=== PATIENT | male | born 1940 | race Two or more races ===

== ENCOUNTER → 2025-02-21 | Outpatient (CLI) | payer MEDICARE, OTHER ==
--- NOTE | 2025-02-21 16:41 | DVHSR ---
APPROVED REPORT EXAM: Two-dimensional and M-mode echocardiogram with Doppler and color Doppler. DIMENSIONS LVDd4.8 (3.8-5.7cm)LA (2D)4.8 (1.9-4.0cm)Aortic Root3.4 (2.0-3.7cm) LVDs3.4 (2.5-4.0cm)LA (MM) (1.9-4.0cm)Aortic Cusp Exc1.4 (1.5-2.0cm) EF (%) 56.6 (55-70%)Rt. Atrium2.9 (1.9-4.0cm)Asc. Aorta cm IVSd1.1 (0.7-1.1cm)RV (D)2.5 (1.8-2.4cm) PWd1.1 (0.7-1.1cm) Mitral Valve MitralMitral Stenosis E wave0.88m/sMV Mean GR.2mmHg A wave0.93m/sMV Peak GR.31mmHg E/A ratio0.92D MVAcm2 DECEL [id number] 1/2 [id number] IVRTmsDop MVA3.40cm2 Aortic Valve Aortic ValveAortic Stenosis V11.00m/Damon Mean GR.3mmHg V21.43m/Damon Peak GR.8mmHg LVOT Diameter2.1 (1.8-2.4cm)Doppler AVA2.42cm2 Pulmonic Valve V20.95m/s Tricuspid Valve [id number] LEFT VENTRICLE The Ejection Fraction is >55%. RIGHT VENTRICLE The right ventricle is normal size. ATRIA The left atrial size is normal. The right atrium size is normal. MITRAL VALVE Mitral annular calcification is mild. Mitral regurgitation is mild. PULMONIC VALVE The pulmonic valve is not well visualized. TRICUSPID VALVE The tricuspid valve is grossly normal. AORTIC VALVE The aortic valve is mildlysclerotic. There is trace aortic regurgitation. GREAT VESSELS The aortic root is normal size. PERICARDIAL EFFUSION There is no pericardial effusion. Conclusion LAE LVH BORDERLINE EF >55% DIASTOLIC DYSFUNCTION MILD MAC
== END | disposition home or self-care (01) ==
LOC: Rad HDHVI 13:50
PROVIDERS: ATTEND Internal Medicine Cardiovascular Disease
DX: I08.0 Rheumatic disorders of both mitral and aortic valves (principal); I50.43 Acute on chronic combined systolic (congestive) and diastolic (congestive) heart failure
CPT/HCPCS: 93306

== ENCOUNTER → 2025-03-16 | Outpatient (CLI) | payer MEDICARE, OTHER ==
[~2025-03-16] MED LIST: ASPI1TAB20 PO; ATOR-47 PO; BUPR-133 PO; CARB-112 PO; CARB-86 PO; CHOL100079 PO; CLOP75TA28 PO; CYAN1KIT3 INJ; DAPA5TAB2 PO; DONE5TAB80 PO; FEBU40TA PO; FLUT1AER17 IN; FLUT50SP; FURO1TAB33 PO; LEVO100T8 PO; LINA1CAP2 PO; LOSA-535 PO; MISC4CAP PO; OMEP20TA PO; POLYPOW85 PO; QUET1TAB11 PO; RASA1TAB4 PO; ROSU10TA16 PO; SERT-377 PO; SODI10PA PO; VERI2.5T PO; ZOFR4T PO; [UNRECOGNIZED DRUG - CODE] IJ
[2025-03-16 09:30] VITALS: BP 112/59; PULSE 71; RESP 16; O2SAT 97
[2025-03-16 10:20] VITALS: BP 114/54; PULSE 71; RESP 16; O2SAT 97
--- NOTE | 2025-03-16 12:21 | DVH ---
EXAM: XY CHEST TWO VIEWS ROUTINE CLINICAL HISTORY: pain COMPARISON: None TECHNIQUE: Frontal and lateral view of the chest was obtained FINDINGS: Lines and Tubes: None Lungs: No focal consolidation. Pleura: No effusion. No pneumothorax. Cardiomediastinal contours: Unremarkable Bones: No acute osseous abnormality. IMPRESSION: No acute cardiopulmonary disease.
--- NOTE | 2025-03-17 12:55 | DVHHP ---
ADMIT DATE: 03/16/2025 HISTORY OF PRESENT ILLNESS: The patient, who is 84 years old, who has seen me once before when he presented with signs and symptom complex of progressive symptoms of shortness of breath. The patient has been having multiple admissions or seen in the Emergency Room on multiple times when he presented with flash pulmonary edema. The patient was given Lasix and then was subsequently discharged home. It appears as though the patient has all the stigma of coronary artery disease. His ejection fraction is slightly diminished on echocardiography. It shows an EF around 40%-45%. PERTINENT MEDICAL HISTORY: Significant for: * Organic heart disease. A. Hypertension. B. History of hyperlipidemia. C. History of CVA, currently on dual antiplatelet therapy. * Anxiety and depression. * Parkinson's disorder. * Benign prostatic hypertrophy. * Early manifestation organic brain syndrome * History of acid reflux. * Irritable bowel syndrome. * Looks like the patient has hyperkalemia. This is most likely secondary to combination of renal insufficiency as well as from the use of losartan. This could contribute to the patient's hyperkalemia. REVIEW OF SYSTEMS: The patient denies any syncopal episode. No history of melena or hematochezia. No hematemesis or hemoptysis. At this time, no history of bleeding CVA. Denies any history of any sepsis, fever, chills at this time. Denies any history of COPD. CURRENT MEDICATIONS: Include: * Aspirin. * Wellbutrin. * Sinemet. * Plavix. * Aricept. * Synthroid. * Linzess. * Lokelma. * Omeprazole. * Zofran. He has hyperlipidemia for which he is unfortunately on 2 combination statins, both Crestor and Lipitor. I will discontinue the Lipitor. I will keep him on Crestor 10 mg once a day. He also has inhaler therapy as well for some tracheobronchitis. PHYSICAL EXAMINATION: VITAL SIGNS: Blood pressure is 131/66, pulse of 80, O2 saturation of 97% on room air. HEENT: Pupils are reactive. Funduscopic exam shows no AV nicking, no exudates, no papilledema. Extraocular muscles are intact. Sclerae anicteric. NECK: No JVD appreciated. Carotid pulses are 2+ symmetrical. No cervical adenopathy. No supraclavicular adenopathy. PULMONARY: Clear to auscultation. Tympanic to percussion. No wheezes. No egophony. CARDIOVASCULAR: Regular rate. There is a soft 2/6 systolic murmur along the left sternal border. ABDOMEN: Soft, nontender. Normal bowel sounds. SKIN: Unremarkable. EXTREMITIES: 1+ pulses bilaterally. NEUROLOGIC: The patient is intact, although memory is somewhat diminished. ASSESSMENT AND PLAN: The patient thus with signs and symptom complex of a flash pulmonary edema consistent with ischemic cardiomyopathy, diminished left ventricular ejection fraction, renal chronic kidney disease with a creatinine of 1.99 and hyperkalemia either type 4 RTA or combination of renal insufficiency as well as use of losartan. At this time, I will start him on Verquvo 2.5 mg b.i.d. and we will titrate and discontinue the patient's Lipitor and discontinue the patient's losartan and monitor the patient's potassium at this point. Verquvo would be beneficial not only for his ischemic cardiomyopathy, also be helpful for his . Therefore, at this time, the patient should undergo coronary angiography. Further recommendations after the angiogram. Terry Win MD SA/LORI/JONATHON TID: [id number] RECEIPT: [id number]
== END | disposition home or self-care (01) ==
LOC: Rad HDHVI 09:20
PROVIDERS: ATTEND Internal Medicine Cardiovascular Disease
DX: Z01.818 Encounter for other preprocedural examination (principal); I50.9 Heart failure, unspecified; N18.30 Chronic kidney disease, stage 3 unspecified; E78.5 Hyperlipidemia, unspecified; Z79.82 Long term (current) use of aspirin; Z79.899 Other long term (current) drug therapy
CPT/HCPCS: 71046; 93005; G0463

== ENCOUNTER 2025-03-17 07:40 | Inpatient (IN) | payer MEDICARE, OTHER ==
[2025-03-16 13:04] LABS: Basophils # (auto) 0 10 ^3/uL (0-0.2); Basophils % (auto) 0.5 % (0.0-2.0); Eosinophils # (auto) 0.2 10 ^3/uL (0-0.8); Eosinophils % (auto) 2.5 % (0.0-7.0); Hematocrit 35.2 % (41.0-53.0); Hemoglobin 12.3 g/dL (13.5-17.5); Lymphocytes # (auto) 1.1 10 ^3/uL (0.4-5.4); Lymphocytes % (auto) 16.5 % (10.0-50.0); Mean Corpuscular Hemoglobin 33.7 pg (28.0-32.0); Mean Corpuscular Hgb Conc. 35.1 g/dL (32.0-36.0); Mean Corpuscular Volume 96.1 fL (80.0-100.0); Monocytes # (auto) 0.5 10 ^3/uL (0-1.3); Neutrophils # (auto) 4.9 10 ^3/uL (1.6-8.6); Neutrophils % (auto) 73.5 % (37.0-80.0); Nucleated Red Blood Cells % 0.1 %; Platelet Count (auto) 189 10^3/uL (140-450); Red Blood Cells 3.66 10^6/uL (4.5-5.90); Red Cell Distribution Width 14.2 % (11.8-14.3); White Blood Cell 6.6 10^3/uL (4.4-10.8)
[2025-03-16 13:20] LABS: INR 0.98 (0.9-1.15); Partial Thromboplastin Time 27.6 SEC (24.5-34.5); Prothrombin Time 10.4 sec (9.3-11.8)
[2025-03-16 13:50] LABS: Albumin 4.4 g/dL (3.2-4.8); Alkaline Phosphatase 105 U/L (46-116); Anion Gap 2 (5-15); Aspartate Aminotransferase 25 U/L (13-40); BUN/Creatinine Ratio 16.1 (10.0-20.0); Calcium 9.9 mg/dL (8.7-10.4); Carbon Dioxide 25 mmol/L (20-31); Glucose 103 mg/dL (74-106); Magnesium 1.9 mg/dL (1.6-2.6); Potassium 4.5 mmol/L (3.5-5.1); Sodium 140 mmol/L (136-145); Total Protein 6.4 g/dL (5.7-8.2)
[2025-03-16 13:51] LABS: Alanine Aminotransferase < 9 U/L (7-40); Bilirubin, Total 0.5 mg/dL (0.2-1.0); Blood Urea Nitrogen 32 mg/dL (9-23); Chloride 113 mmol/L (98-107)
[~2025-03-17] VITALS: Ht 175.3 cm; Wt 93.5 kg
[2025-03-17] VITALS (12 sets, daily range): BP systolic 104–145; BP diastolic 54–76; PULSE 63–73; RESP 15–19; TEMP 97.8–98.6; O2SAT 96–99
[~2025-03-17 07:40] MED LIST changes: -CARB-86 PO; -CYAN1KIT3 INJ
[2025-03-17] MEDS ORDERED: CYAN1KIT3 INJ (10:12)
[2025-03-17] MEDS ORDERED: CARB-86 PO (10:21)
[2025-03-17] MEDS: ANGIOMAX 250 MG VIAL IV ONE ×2 (10:53→11:52)
[2025-03-17] MEDS: fentaNYL CITRATE 100 MCG/2 ML VL ONE (10:53)
[2025-03-17] MEDS: MIDAZOLAM HCL 2MG/2ML 2ml VIAL (1mg/ml) ONE (10:53)
[2025-03-17] MEDS: SODIUM CHL 0.9% 0 ML ONE (10:53)
[2025-03-17] MEDS: LIDOCAINE 2%HCL (LOCAL ANESTH.) INJ 20ML MDV ONE (10:53)
[2025-03-17] MEDS: EPINEPHrine HCL 1 MG/10 ML SYRG ONE (11:33)
[2025-03-17] MEDS: ATROPINE SULF 1 MG/10ml SYR ONE (11:33)
[2025-03-17] MEDS: SODIUM BICARB 8.4% 50Meq/50ml SYR Vial IV ONE (11:44)
[2025-03-17] MEDS ORDERED: SODIUM BICARB 50mEq/50ml Vial 50 ML in SOD CHL 0.45% 1,000 ML IV STA (11:45)
[2025-03-17] MEDS: SODIUM CHL 0.9% 50 ML ONE (11:52)
[2025-03-17] MEDS: hydrALAZINE HCL 20 MG/ML VL ONE (12:21)
[2025-03-17] MEDS: CLOPIDOGREL BISULFATE 75 MG TAB ONE (12:28)
[2025-03-17] MEDS ORDERED: NITROGLYCERIN 0.4 MG SL TAB SL PRN (12:45)
[2025-03-17] MEDS ORDERED: MORPHINE SULFATE INJ 2 MG/ml SYRG IV PRN (12:45)
--- NOTE | 2025-03-17 13:57 | DVHOP ---
DATE OF SURGERY: 03/17/2025 PROCEDURES TO BE PERFORMED: * Selective left and right coronary angiography. * Ventriculogram. * Right heart catheterization. * Osseo Miguel catheterization. * Angioplasty with stent placement of the left anterior descending artery with a 2.5 x 15 mm Toy Murray stent extending into the left main. * Angioplasty with stent placement of the circumflex ostium with a 2.5 x 15 mm Newberg Murray stent extending into the left main. * Thrombectomy with shockwave device of the left main, LAD and circumflex artery with a 2.5 mm shockwave thrombectomy catheter. * FFR of the left main, LAD, and circumflex. FFR was 0.77 of the circumflex artery and the left anterior descending artery as well. DESCRIPTION OF PROCEDURE: The patient was prepped and draped in a sterile condition. A 1% Xylocaine was used to anesthetize the right groin. Using a Calderón needle, the right femoral artery was engaged. Using a Seldinger technique, a 6-Greek sheath was introduced to the right femoral artery. Using a 6-Greek JL4 catheter and 6-Greek JR4 catheter, selective left and right coronary angiography was performed. Using a 6-Greek pigtail catheter, ventriculogram was done. Similarly, right heart catheterization and Osseo-Miguel catheterization was done through a 6-Greek sheath introduced into the right femoral vein. The Osseo-Miguel catheter was done post angioplasty. There were no complications. The patient tolerated the procedure well. Total contrast use was 70 mL of Visipaque. The patient was given IV fluid hydration with D5 half normal with sodium bicarb at 75 mL an hour for about 500 mL. CBC and a chem-7 will be checked in the morning and the patient has been loaded with 300 mg of Plavix and will be started on 75 mg of Plavix on a daily basis. RESULTS: * Left main had a distal 95% narrowing. * Left anterior descending artery and ostial 95% narrowing with heavy calcification and moderate diffuse disease throughout. * Circumflex and ostial 95% narrowing with moderate diffuse disease throughout with about a 50% narrowing in the distal circumflex. It is a codominant system. * Right coronary artery has moderate diffuse disease throughout; however, no discrete lesions were noted. * Left ventricular function showed the patient's ejection fraction of around 45% with an LVEDP of 17 mmHg, but left ventricular systolic pressure was elevated at 180. Right heart catheterization showed an RA pressure of 8, RV pressure of 38/8, capillary wedge pressure of 15, and PA pressure of 38/8. Cardiac output was measured to be 4.33 with a cardiac index of 2.10 L per meter squared. The patient underwent successful angioplasty with stent placement of the left anterior descending artery with a 2.5 x 15 mm Newberg Murray stent. The stent was deployed in the ostium of the LAD extending into the proximal segment of the LAD and into the left main. It was deployed at 16 atmospheres. Similarly, the circumflex lesion was also stented with a 2.5 x 15 mm Toy Murray stent extending into the proximal segment of the circumflex extending into the left main. Both stents were deployed simultaneously. Prior to the deployment of the stent, both arteries were treated with shock wave thrombectomy catheters. With a 2.5 x 12 mm shock wave catheter was used in both the left main, left anterior descending artery as well as the circumflex. A total of five shock treatments were given, two in the LAD, two in the circumflex, and one in the left main. CONCLUSION: The patient had successful revascularization of the left main distal lesion extending into the ostium of the LAD and circumflex. Post angioplasty, there was less than 10% residual stenosis in all the arteries, left main, LAD, and circumflex ostiums. Terry Win MD SA/LEONILA/JONATHON TID: [id number] [facility]: [id number]
[2025-03-17] MEDS ORDERED: ONDANSETRON ODT 4 MG TAB PO PRN (15:15)
[2025-03-17] MEDS ORDERED: CARBIDOPA W LEVODOPA 25/250mg TABLET PO SCH (16:13)
[2025-03-17] MEDS: VERICIGUAT 2.5 MG PO SCH (22:00)
[2025-03-17] MEDS: QUEtiapine FUMARATE 25 MG TAB PO SCH (22:12)
[2025-03-17] MEDS: DONEPEZIL HYDROCHLORIDE 5 MG TAB PO SCH (22:22)
[2025-03-18 01:00] VITALS: BP 108/44; PULSE 69; RESP 17; TEMP 98.6; O2SAT 94
--- NOTE | 2025-03-18 03:42 | DVHDS ---
DATE OF DISCHARGE: 03/17/2025 HOSPITAL COURSE: The patient, who is 85 years old, underwent successful coronary angiography with angioplasty of the left main, left anterior descending artery, and the circumflex artery ostium. Distal left main disease extending into the LAD and the circumflex territory. At this time, the patient has been revascularized with 2 simultaneous stent placements into the LAD and left main and circumflex and left main. There were no complications. The patient tolerated the procedure well. The patient had underlying chronic kidney disease that was well hydrated pre and post intervention. Repeat creatinine was done. It shows the patient's creatinine level of 1.94, down from 1.99. The patient is clinically stable, may be discharged home, will be maintained on dual antiplatelet therapy. The losartan will be discontinued. The patient will be titrated up on Verquvo to 5 mg b.i.d. and eventually 10 mg b.i.d. if blood pressure remains high. Stable at the time of discharge. DISPOSITION: Home. ACTIVITY: As instructed. DIET: Two-gram sodium diet. MEDICATIONS: The patient will maintain on dual antiplatelet therapy and on Crestor 10 mg p.o. daily and all his previous home medications will be resumed with the exception of losartan, Lokelma, and Lipitor, since the patient is already on Crestor. FOLLOWUP: Follow up with me as needed. Follow up with his primary care forms designer in [facility], Dr. Fabian. All information will be transmitted to Dr. Fabian's office as well. Terry Win MD SA/LORI/JONATHON TID: [id number] RECEIPT: [id number]
[2025-03-18 05:00] VITALS: BP 126/57; PULSE 73; RESP 17; TEMP 97.6; O2SAT 95
[2025-03-18] MEDS: SERTRALINE HCL 50 MG TAB PO SCH (06:12)
[2025-03-18] MEDS: LEVOTHYROXINE SODIUM 100 MCG TAB PO SCH (06:12)
[2025-03-18] MEDS: DAPAGLIFLOZIN PROPANEDIOL 5 MG PO SCH (06:13)
[2025-03-18 07:32] VITALS: BP 145/76; PULSE 69; RESP 17; TEMP 98.6; O2SAT 97
[2025-03-18 08:00] VITALS: PULSE 67; PULSE 69; RESP 17; O2SAT 96
[2025-03-18] MEDS: ASPirin-EC 81 mg tab PO SCH (08:57)
[2025-03-18] MEDS: PANTOPRAZOLE 40 MG TAB PO SCH (08:58)
[2025-03-18] MEDS: CLOPIDOGREL BISULFATE 75 MG TAB PO SCH (08:58)
[2025-03-18 09:00] VITALS: BP 119/58; PULSE 67; RESP 16; TEMP 98.6; O2SAT 96
[2025-03-18] MEDS: FUROSEMIDE 20 MG TAB PO SCH (09:00)
[2025-03-18] MEDS: Febuxostat (Uloric) 40MG TABLET PO SCH (09:01)
[2025-03-18] MEDS: Fluticasone-Umeclidinium-Vilan (Trelegy Ellipta 200-62.5-25 Mcg/I IN SCH (09:01)
[2025-03-18] MEDS: BUPROPION HCL 150 MG PO SCH (09:01)
[2025-03-18] MEDS: RASAGILINE MESYLATE 1 MG PO SCH (09:02)
== END 2025-03-18 12:13 | disposition home or self-care (01) | DRG 324 ==
LOC: CATH 07:40 → OVERFLOW 12:45 → TELE-CENTR 16:14
PROVIDERS: ADMIT Internal Medicine Cardiovascular Disease; ATTEND Internal Medicine Cardiovascular Disease
PROC: 027135Z Dilation of Coronary Artery, Two Arteries with Two Drug-eluting Intraluminal Devices, Percutaneous Approach (ICD-10-PCS; principal; 2025-03-17)
PROC: 02F Heart and Great Vessels, Fragmentation (ICD-10-PCS; 2025-03-17)
PROC: 02C23ZZ Extirpation of Matter from Coronary Artery, Three Arteries, Percutaneous Approach (ICD-10-PCS; 2025-03-17)
PROC: 4A023N8 Measurement of Cardiac Sampling and Pressure, Bilateral, Percutaneous Approach (ICD-10-PCS; 2025-03-17)
PROC: B2111ZZ Fluoroscopy of Multiple Coronary Arteries using Low Osmolar Contrast (ICD-10-PCS; 2025-03-17)
PROC: B2151ZZ Fluoroscopy of Left Heart using Low Osmolar Contrast (ICD-10-PCS; 2025-03-17)
PROC: 4A033BC Measurement of Arterial Pressure, Coronary, Percutaneous Approach (ICD-10-PCS; 2025-03-17)
DX: I25.10 Atherosclerotic heart disease of native coronary artery without angina pectoris (principal); Z79.899 Other long term (current) drug therapy; I12.9 Hypertensive chronic kidney disease with stage 1 through stage 4 chronic kidney disease, or unspecified chronic kidney disease; N18.9 Chronic kidney disease, unspecified
CPT/HCPCS: 36415; 71046; 80053; 83735; 85025; 85610; 85730; 92928; 92929; 92973; 92978; 93005; 93460; 93571; 99152; C1874; G0378; G0463; J2250